=== PATIENT | female | born 1965 | race Caucasian/White ===

== ENCOUNTER 2016-12-24 18:09 | Emergency (ER) | payer SELFPAY ==
[2016-12-24 18:25] VITALS: BMI 20.7
--- NOTE | 2016-12-24 19:03 | DR.GENAD ---
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 - Complaint/Symptoms Chief Complaint:: PT C/O STEPPING DOWN OFF OF THE STEPS OF HER CAMPER AND HER LEGS WENT OUT FROM UNDER HER AND LEGS FOLDED UNDER HER, AND PT HAS BRUISING TO HER RIGHT FOOT, AND LEFT FOOT". - Source History Provided: Patient - Mode of Arrival Mode of Arrival: Ambulatory - Timing Onset of Chief Complaint: 12/24/16 PMH - PMH Past Medical History: Yes Past Medical History: Diabetes Past Surgical History: No - Family History History of Family Medical Conditions: Yes Family Medical History: Diabetes Mellitus, Cancer, [place], Hypertension - Social History Does patient currently use any type of tobacco product: Yes Have you used tobacco products in the last 12 months: Yes Type of Tobacco Use: Cigarettes How many years tobacco product used: 35 Does any household member use tobacco: No Alcohol Use: None Do you use any recreational Drugs:: No Lives With: Family Lives Where: Home - infectious screening In the last 2 months have you had wt loss of >10#?: NO Have you had fever, night sweats or hemotysis?: No Have you traveled outside the country in the last 6 months?: No Isolation: Standard ROS - Review of Systems Constitutional: No Symptoms Reported Respiratoy: No Symptoms Reported Cardiovascular: No Symptoms Reported Neurological: No Symptoms Reported Musculoskeletal: See HPI Integumentary: Bruises Hematologic/Lymphatic: No Symptoms Reported PE - Vital Signs Vitals: Temperature 98.5 F Pulse Rate [Right Brachial] 73 Respiratory Rate 20 Blood Pressure [Right Arm] 116/72 O2 Sat by Pulse Oximetry 97 - General Limitations: No Limitations - Neck Neck Exam: Normal Inspection - Chest Chest Inspection: Normal Inspection - Respiratory Respiratory Exam: Normal Lung Sounds Bilat Respiratory Exam: Bilateral Clear to Auscultation - Cardiovascular Cardiovascular Exam: Regular Rate, Normal Rhythm - Extremities Extremities Exam: Tenderness (base of left little toe w/bruising; right big/2nd toes lesly taped, tender with bruising; base of right little toe bruised, tender ), Joint Swelling ROR - XRAY XRAY Interpreted by: Radiologist (nondisplaced, spiral fx left 4th proximal toe ; ? nondisplaced fx right great toe) - Diagnosis Discharge Problem: Osteopenia determined by x-ray Fracture, toe Qualifiers: Encounter type: initial encounter Toe: lesser toe Fracture type: closed Phalanx : proximal Fracture alignment: nondisplaced Laterality: left Qualified Code(s): S92.515A - Nondisplaced fracture of proximal phalanx of left lesser toe(s), initial encounter for closed fracture - Discharge Plan Disposition: HOME, SELF-CARE Condition: Stable Prescriptions: Hydrocodone-Acet 5 mg/325 mg [NORCO 5 MG/325 MG *] 1 tab PO Q6H PRN #12 tab PRN Reason: Pain - Follow ups/Referrals Follow ups/Referrals: [facility],None [Primary Care Provider] - 3 days RACHAEL WHEELER [CONSULTING PHYSICIAN] - 3 days - Instructions Instructions: Toe Fracture, [id number]
[2016-12-24] MEDS ORDERED: NORCO 5/325 MG TAB PO ONE (19:05)
[2016-12-24] MEDS ORDERED: NORCO 5/325 MG TAB ONE (19:09)
[2016-12-24 19:12] VITALS: BP 116/72
--- NOTE | 2016-12-24 19:45 | RAD ---
HISTORY: Pain Study: Right foot series Comparison: None Findings: There is vague linear lucency along the mid shaft of the distal phalanx of the 1st toe. No displaced bony fragments are seen. The tarsal bones are intact. The bones are osteopenic. No erosions are see n. IMPRESSION: Questionable nondisplaced fracture along the distal phalanx of the 1st toe, suggest followup films. Diffuse osteopenia. Reported By:
--- NOTE | 2016-12-24 20:38 | RAD ---
HISTORY: Fall and pain Study: left foot series Comparison: None Findings: There is a minimally displaced spiral fracture along the distal aspect of the proximal phalanx of th e 4th toe. The bones are osteopenic. The joint spaces are intact. IMPRESSION: Minimally displaced spiral fracture along the proximal phalanx of the 4th toe Reported By:
== END 2016-12-24 21:15 | disposition home or self-care (01) ==
LOC: ER 18:32
DX: S92.515A Nondisplaced fracture of proximal phalanx of left lesser toe(s), initial encounter for closed fracture (principal); M85.80 Other specified disorders of bone density and structure, unspecified site; W10.9XXA Fall (on) (from) unspecified stairs and steps, initial encounter; Y92.89 Other specified places as the place of occurrence of the external cause
CPT/HCPCS: 73630; 99282; 99283